=== PATIENT | female | born 1975 | race Caucasian/White ===

== ENCOUNTER 2020-02-14 15:05 | Emergency (ER) | payer MEDICARE, MEDICAID, SELFPAY ==
[2020-02-14 15:16] VITALS: BP 145/77; PULSE 71; RESP 18; TEMP 36.7; O2SAT 100
[2020-02-14 16:40] VITALS: PULSE 68; RESP 20; O2SAT 98
[2020-02-14 16:42] LABS: Basophils # 0.1 10^3/uL (0.0-0.1); Basophils % 1.9 %; Eosinophils # 0.7 10^3/uL (0.0-0.8); Hematocrit 40.6 % (37.0-47.0); Hemoglobin 12.2 g/dL (11.5-15.3); Lymphocytes # 1.9 10^3/uL (0.8-4.8); Lymphocytes % 26.1 %; Mean Corpuscular Hemoglobin 25.6 pg (28.0-34.0); Mean Corpuscular Volume 85.3 fL (81-99); Mean Platelet Volume 8.8 fL (7.4-10.4); Monocytes # 0.6 10^3/uL (0.2-0.9); Monocytes % 7.8 %; Neutrophils # 3.94 10^3/uL (1.8-7.7); Neutrophils % 53.9 %; Nucleated Red Blood Cells % 0 %; Platelet Count 292 10^3/cmm (130-400); Red Blood Count 4.76 10^6/uL (4.1-5.3); Red Cell Distribution Width 14.4 % (12.1-15.1); White Blood Count 7.3 10^3/uL (4.0-10.0)
[2020-02-14 16:53] LABS: HCG, Serum Qual Negative (Negative)
--- NOTE | 2020-02-14 17:03 | PC.NURSE ---
Before leaving room previously pt had stated she wanted to go home and this nurse advised her that she should stay and get the scan the physician had ordered. Pt stated she wanted to go outside and smoke and this nurse notified her that if she went out to smoke she could not return to her room. Upon entering pt room at this time the room is empty. This nurse went to registration and they stated the patient had walked outside and left.
--- NOTE | 2020-02-14 17:18 | W.ED.ABDPA2 ---
HPI - Abdominal Pain General: Chief Complaint: Abdominal Pain Stated Complaint: abd pain Time Seen by Provider: 02/14/20 16:28 History of Present Illness: HPI narrative: 44-year-old female comes in complaining of right upper quadrant and epigastric abdominal pain is been going on for last day. She is previously had a cholecystectomy she is concerned she may have an appendicitis patient had previously had an endoscopy which showed a gastric ulcer. She not been taking anything for recently. MD elicited complaint: abdominal pain Pertinent past history: gastritis Onset (ago): hour(s) Pain Consistency: intermittent Location: Epigastric Severity: moderate Quality: cramping Radiation: RUQ and epigastric Migration to: no migration Exacerbating factors: nothing Relieving factors: nothing Associated Symptoms: Reports constipation, GI cramping, dyspepsia and vomiting; Denies bloating, change in bowel habits, coffee ground emesis, diarrhea, fever(s), hematuria, hematemesis and melena Treatments prior to arrival: NSAIDs Review of Systems Const: Denies: fever(s) ENMT: Denies: throat pain, ear or mastoid pain, nasal discharge or nasal congestion Card: Denies: chest pain, edema, dyspnea on exertion or orthopnea Resp: Denies: dyspnea, productive cough or non-productive cough GI: Reports: vomiting, constipation and GI cramping; Denies: hematemesis, coffee ground emesis, diarrhea, bloating, change in bowel habits or melena : Denies: hematuria Skin/Breast: Denies: rash or pruritus PFSH ED PFSH: Medical History (Updated 02/15/20 @ 13:52 by Alfredo Iglesias DO) Cervical spine fracture Chronic low back pain Vaginal delivery Surgical History (Updated 02/15/20 @ 13:52 by Alfredo Iglesias DO) H/O LEEP H/O tubal ligation Hx of cholecystectomy S/P small bowel resection Social History (Updated 02/15/20 @ 13:52 by Alfredo Iglesias DO) Smoking and tobacco status: current every day smoker Alcohol intake: never Physical Exam Const: COMMON NORMALS: no acute distress GENERAL APPEARANCE: cooperative and comfortable ORIENTATION/CONSCIOUSNESS: Yes awake, Yes oriented to person, Yes oriented to place and Yes oriented to time Eye: COMMON NORMALS: Equal, round and reactive pupils present, EOMs intact bilaterally, conjunctivae normal and no scleral icterus CONJUNCTIVA: Yes conjunctivae normal PUPIL: Yes Equal, round and reactive pupils present Neck/C-Spine: COMMON NORMALS: full ROM, no lymphadenopathy, supple and no JVD Lymph: LYMPHATIC: no lymphadenopathy noted and no lymphedema noted Resp: COMMON NORMALS: normal respiratory effort, No retractions, No use of accessory muscles and clear to auscultation bilaterally AUSCULTATION: clear to auscultation bilaterally Cardio: COMMON NORMALS: no JVD, regular rate, regular rhythm and No murmurs present (Cardio) RATE: regular rate RHYTHM: regular rhythm GI: COMMON NORMALS: Soft to palpation and No hepatosplenomegaly present AUSCULTATION: Yes normoactive bowel sounds PALPATION: Yes Soft to palpation, No Tenderness to palpation present (GI), No Guarding due to palpation present (GI) and Yes No hepatosplenomegaly present Extremity: COMMON NORMALS: normal to inspection, capillary refill normal, no clubbing, cyanosis or edema, no calf tenderness and no pedal edema Neuro: SENSORIUM/ORIENTATION: Yes oriented to person, Yes oriented to place and Yes oriented to time Skin: COMMON NORMALS: no rashes or lesions noted GENERAL SKIN EXAM: no rashes or lesions noted Course Vital Signs: Vital signs: Vital Signs Temperature 98.0 F 02/14/20 15:16 Pulse Rate 68 02/14/20 16:40 Respiratory Rate 20 H 02/14/20 16:40 Blood Pressure 145/77 02/14/20 15:16 Pulse Oximetry 98 02/14/20 16:40 MDM - Abdominal Pain MDM Narrative: Medical decision making narrative: After initial evaluation recommended CT abdomen pelvis with IV contrast however patient did not want to stay. She was concerned she had an appendicitis the location of the pain is unlikely to be appendicitis and [facility] she was satisfied with that and wanted to leave. Recommended to her that she stay that she should have the persistent CT done to make sure there is no other issues going on she declined and left AMA. Lab Data: Labs: Lab Results 02/14/20 02/14/20 02/14/20 Range/Units 16:34 16:34 16:34 WBC 7.3 (4.0-10.0) 10^3/ uL RBC 4.76 (4.1-5.3) 10^6/u L Hgb 12.2 (11.5-15.3) g/dL Hct 40.6 (37.0-47.0) % MCV 85.3 (81-99) fL MCH 25.6 L (28.0-34.0) pg MCHC 30.0 (30.0-36.0) g/dL RDW 14.4 (12.1-15.1) % Plt Count 292 (130-400) 10^3/c mm MPV 8.8 (7.4-10.4) fL Neut % (Auto) 53.9 % Lymph % (Auto) 26.1 % [place] % (Auto) 7.8 % Eos % (Auto) 10.0 % Baso % (Auto) 1.9 % Neut # (Auto) 3.94 (1.8-7.7) 10^3/u L Lymph # (Auto) 1.9 (0.8-4.8) 10^3/u L [place] # (Auto) 0.6 (0.2-0.9) 10^3/u L Eos # (Auto) 0.7 (0.0-0.8) 10^3/u L Baso # (Auto) 0.1 (0.0-0.1) 10^3/u L Nucleated RBC % (a uto) 0 % Nucleated RBCs # 0.0 /100WBC Sodium 136 (136-145) mmol/L Potassium 3.7 (3.5-5.1) mmol/L Chloride 101 (98-107) mmol/L Carbon Dioxide 24 (22-29) mmol/L Anion Gap 14.7 (5-19) BUN 10 (6-20) mg/dL Creatinine 0.8 (0.5-0.9) mg/dL GFR Calculation 78.7 L (90-130) mL/min Glucose 84 (65-115) mg/dL Calculated Osmolal ity 277 L (285-295) mOsm/k g Lactate 1.0 (0.5-2.2) mmol/L Calcium 9.6 (8.5-10.5) mg/dL Magnesium 1.9 (1.7-2.3) mg/dL Total Bilirubin 0.4 (0.15-1.2) mg/dL AST 18 (0-32) U/L ALT 16 (0-33) U/L Alkaline Phosphata se 65 (35-105) IU/L Total Protein 7.4 (6.6-8.7) g/dL Albumin 4.0 (3.5-5.2) g/dL Globulin 3.4 (1.3-4.6) g/dL Lipase 25 (13-60) U/L HCG, Qual (Negative) 02/14/20 Range/Units 16:34 WBC (4.0-10.0) 10^3/ uL RBC (4.1-5.3) 10^6/u L Hgb (11.5-15.3) g/dL Hct (37.0-47.0) % MCV (81-99) fL MCH (28.0-34.0) pg MCHC (30.0-36.0) g/dL RDW (12.1-15.1) % Plt Count (130-400) 10^3/c mm MPV (7.4-10.4) fL Neut % (Auto) % Lymph % (Auto) % [place] % (Auto) % Eos % (Auto) % Baso % (Auto) % Neut # (Auto) (1.8-7.7) 10^3/u L Lymph # (Auto) (0.8-4.8) 10^3/u L [place] # (Auto) (0.2-0.9) 10^3/u L Eos # (Auto) (0.0-0.8) 10^3/u L Baso # (Auto) (0.0-0.1) 10^3/u L Nucleated RBC % (a uto) % Nucleated RBCs # /100WBC Sodium (136-145) mmol/L Potassium (3.5-5.1) mmol/L Chloride (98-107) mmol/L Carbon Dioxide (22-29) mmol/L Anion Gap (5-19) BUN (6-20) mg/dL Creatinine (0.5-0.9) mg/dL GFR Calculation (90-130) mL/min Glucose (65-115) mg/dL Calculated Osmolal ity (285-295) mOsm/k g Lactate (0.5-2.2) mmol/L Calcium (8.5-10.5) mg/dL Magnesium (1.7-2.3) mg/dL Total Bilirubin (0.15-1.2) mg/dL AST (0-32) U/L ALT (0-33) U/L Alkaline Phosphata se (35-105) IU/L Total Protein (6.6-8.7) g/dL Albumin (3.5-5.2) g/dL Globulin (1.3-4.6) g/dL Lipase (13-60) U/L HCG, Qual Negative (Negative) Discharge Plan Discharge Patient Disposition: Left Against Medical Advice Prescriptions: No Action albuterol sulfate 90 mcg/actuation Hfa Aerosol Inhaler 1 - 2 puff INHALATION Q6H PRN (Reason: Shortness Of Breath) RF: 0 Referrals: Garett Horton MD [Primary Care Provider] - Discharge Date/Time: 02/14/20 17:05 Coding Level of Care Code ED [employer] Parts Cutter Hand for Phoebe Wilson
[2020-02-14 17:43] LABS: Alanine Aminotransferase 16 U/L (0-33); Alkaline Phosphatase 65 IU/L (35-105); Anion Gap 14.7 (5-19); Aspartate Amino Transferase 18 U/L (0-32); Blood Urea Nitrogen 10 mg/dL (6-20); Calcium 9.6 mg/dL (8.5-10.5); Carbon Dioxide 24 mmol/L (22-29); Chloride 101 mmol/L (98-107); Globulin 3.4 g/dL (1.3-4.6); Glomerular Filtration Rate 78.7 mL/min (90-130); Glucose 84 mg/dL (65-115); Lipase 25 U/L (13-60); Magnesium 1.9 mg/dL (1.7-2.3); Osmolality Calculated 277 mOsm/kg (285-295); Potassium 3.7 mmol/L (3.5-5.1); Sodium 136 mmol/L (136-145); Total Bilirubin 0.4 mg/dL (0.15-1.2); Total Protein 7.4 g/dL (6.6-8.7)
== END 2020-02-14 17:05 | disposition left against medical advice (07) ==
PROVIDERS: Emergency Medicine; Emergency Provider Family Medicine; PCP Family Medicine
DX: R10.9 Unspecified abdominal pain (principal); Z53.21 Procedure and treatment not carried out due to patient leaving prior to being seen by health care provider; F17.210 Nicotine dependence, cigarettes, uncomplicated
CPT/HCPCS: 12345; 36415; 80053; 83605; 83690; 83735; 84703; 85025; 99281; 99283

== ENCOUNTER → 2021-07-16 19:03 | Outpatient (BNVA) | payer MEDICARE, MEDICAID, SELFPAY | PROVIDERS: Visit Provider Registered Nurse Neonatal Intensive Care | DX: Z20.2 Contact with and (suspected) exposure to infections with a predominantly sexual mode of transmission (principal) | CPT/HCPCS: 81000; 87491; 87591; 87661 ==

== ENCOUNTER 2021-10-29 05:36 | Day surgery (SDC) | payer MEDICARE, MEDICAID, SELFPAY ==
[2021-10-25 12:35] VITALS: BMI 27.1
[2021-10-29 06:12] VITALS: BP 165/98; PULSE 80; RESP 18; TEMP 36.1; O2SAT 99
[2021-10-29] MEDS: sodium chloride 0.9% 1,000 ML 30 ML IV (06:30)
[2021-10-29 06:33] LABS: OR HCG Qualitative Urine Negative (Negative)
--- NOTE | 2021-10-29 06:41 | ANES.PREANE2 ---
Pre-Anesthetic Assessment Height/Weight: Height 1.65 m Weight 73.936 kg Temp Pulse Resp BP Pulse Ox 97 F L 80 18 165/98 99 10/29/21 06:12 10/29/21 06:12 10/29/21 06:12 10/29/21 06:12 10/29/21 06:12 Preop Diagnosis: screen Operation Date: 10/29/21 07:00 Proposed Procedures p Colonoscopy g0102(Not Applicable) - Rolo Us MD Familial anesthetic complications: none Was Beta Faraz taken within 24 hours: N/A Was Clonidine taken within 24 hours: N/A Last intake: Intake Last Liquid Date 10/28/21 Last Liquid Time 22:30 Last Solid Date 10/27/21 Last Solid Time 18:00 Social Tobacco 0.5 pack(s) per day MJ daily Exam alert and oriented x 3 Airway Submandibular: within normal limits Cervical ROM: within normal limits Mallampati: Class II Dentition: other Comments: Comments: poor dentition, many missing Pulmonary Asthma CV/HEM Murmur None reported Hepatic None reported GI None reported Metabolic None reported Neuropsych Anxiety and Seizure (epilepsy- patient doesnt recall last seizure, states maybe 10 months ago ) Anesthetic Plan ASA status: 3 Anesthesia: Anesthesia Evaluation and MAC Medications/Allergies Home Medications Medication Instructions Recorded Confirmed Last Taken Type albuterol sulfate 90 mcg/actuation 1 inh INHALATION QID PRN #8.5 g 09/25/21 10/29/21 10/28/21 Rx aerosol inhaler Allergies Allergy/AdvReac Type Severity Reaction Status Date / Time latex Allergy ALGY-Rash Verified 10/25/21 12:34 Penicillins Allergy ADR-Abdominal Verified 10/25/21 12:34 Pain Current Medications Generic Name Dose Route Start Last Admin Trade Name Freq PRN Reason Stop Dose Admin Sodium Chloride 1,000 mls @ 30 mls/hr 10/29/21 06:00 10/29/21 06:30 Sodium Chloride 0.9% IV 10/30/21 05:59 30 mls/hr .Q24H NICKOLAS Administration PFSH Anesthesia Medical History Cervical spine fracture Chronic low back pain Marijuana abuse Vaginal delivery Surgical History H/O LEEP H/O tubal ligation Hx of cholecystectomy S/P small bowel resection Social History Smoking and tobacco status: current every day smoker Alcohol intake: never Female Reproductive History Date of last menstrual period: 10/12/21 Data Anesthesia Cardiac Studies: No Data to Display
--- NOTE | 2021-10-29 07:15 | P.HP_ITS ---
Same Day Surgery H&P Indication for Procedure/HPI DATE OF PROCEDURE: October 29, 2021 CHIEF COMPLAINT/INDICATIONFOR SURGICAL PROCEDURE: Family history of colon cancer PREOP DIAGNOSIS: screen PLANNED PROCEDURE: Operation Date: 10/29/21 07:00 Proposed Procedures p Colonoscopy g0102(Not Applicable) - Rolo Us MD Medications/Allergies* Allergies/Adverse Reactions Allergy/AdvReac Type Severity Reaction Status Date / Time latex Allergy ALGY-Rash Verified 10/25/21 12:34 Penicillins Allergy ADR-Abdominal Verified 10/25/21 12:34 Pain Current Medications: Generic Name Dose Route Start Last Admin Trade Name Freq PRN Reason Stop Dose Admin Sodium Chloride 1,000 mls @ 30 mls/hr 10/29/21 06:00 10/29/21 06:30 Sodium Chloride 0.9% IV 10/30/21 05:59 30 mls/hr .Q24H NICKOLAS Administration Pertinent History/Comorbid Conditions* Medical History (Updated 10/11/21 @ 13:43 by Rolo Us MD) Cervical spine fracture Chronic low back pain Marijuana abuse Vaginal delivery Surgical History (Updated 02/15/20 @ 13:52 by Alfredo Iglesias DO) H/O LEEP H/O tubal ligation Hx of cholecystectomy S/P small bowel resection Social History Smoking and tobacco status: current every day smoker Alcohol intake: never Pertinent Exam Findings alert, oriented x 3, clear to auscultation bilaterally, regular rate & rhythm, operative site marked and procedure specific exam findings Recommendations Surgery/Procedure today Coding Level of Care Code Acute Public Message Service Supervisor for Phoebe Wilson
[2021-10-29 07:27] VITALS: BP 160/92; PULSE 73; RESP 18; TEMP 36.5; O2SAT 100
--- NOTE | 2021-10-29 07:29 | ANE.PACU2 ---
Inpatient post-anesthesia follow up: Airway intact: Yes Vital signs: Temperature 97.7 F Pulse Rate 73 Respiratory Rate 18 Blood Pressure 160/92 Pulse Oximetry 100 Oxygen Delivery Me thod Room Air Oxygen Flow Rate Fraction of Inspir ed Oxygen Hydration adequate: Yes Nausea and vomiting: No Pain level: 1 Mental status: Baseline
[2021-10-29 07:30] VITALS: BP 159/92; PULSE 86; RESP 18; O2SAT 99
== END 2021-10-29 07:45 | disposition home or self-care (01) ==
PROVIDERS: Anesthesiology; PCP Family Medicine; Visit Provider Internal Medicine
PROC: 0DJD8ZZ Inspection of Lower Intestinal Tract, Via Natural or Artificial Opening Endoscopic (ICD-10-PCS; CPT 45378; principal; 2021-10-29 07:00)
DX: Z12.11 Encounter for screening for malignant neoplasm of colon (principal); Z86.010 Personal history of colon polyps; F17.210 Nicotine dependence, cigarettes, uncomplicated; J45.909 Unspecified asthma, uncomplicated; G40.909 Epilepsy, unspecified, not intractable, without status epilepticus
CPT/HCPCS: 84703; G0121; J2704; J7030

== ENCOUNTER → 2023-03-13 12:47 | Outpatient (BNVA) | payer MEDICARE, MEDICAID, SELFPAY | PROVIDERS: PCP Family Medicine; Visit Provider Family Medicine | DX: E05.90 Thyrotoxicosis, unspecified without thyrotoxic crisis or storm (principal); L65.9 Nonscarring hair loss, unspecified; N93.8 Other specified abnormal uterine and vaginal bleeding; F15.10 Other stimulant abuse, uncomplicated | CPT/HCPCS: 80053; 84443; 85025 ==

== ENCOUNTER 2023-03-26 20:19 | Emergency (ER) | payer MEDICARE, MEDICAID, SELFPAY ==
[2023-03-26 20:26] VITALS: BP 186/149; RESP 22; TEMP 36.6; O2SAT 100; BMI 27.4
--- NOTE | 2023-03-26 20:28 | XRR_ITS ---
PROCEDURE INFORMATION: Exam: XR Soft Tissue Neck Exam date and time: 03/26/2023 8:33 PM Age: 47 years old Clinical indication: Other: Choking TECHNIQUE: Imaging protocol: Radiologic exam of the soft tissues of the neck. COMPARISON: CR XR chest 1V [id number] 03/03/2018 8:30 AM FINDINGS: Airway: Normal. No abnormal narrowing. Soft tissues: Normal. Normal epiglottis. Bones/joints: Unremarkable. XR/XR soft tissue neck [id number] IMPRESSION: No acute findings. Negative for radiodense foreign body.
--- NOTE | 2023-03-26 20:28 | XRR_ITS ---
PROCEDURE INFORMATION: Exam: XR Chest Exam date and time: 03/26/2023 8:43 PM Age: 47 years old Clinical indication: Other: Choking TECHNIQUE: Imaging protocol: Radiologic exam of the chest. Views: 1 view. COMPARISON: CR XR chest 1V [id number] 03/03/2018 8:30 AM FINDINGS: Lungs: Unremarkable. No consolidation. Pleural spaces: Unremarkable. No pleural effusion. No pneumothorax. Heart/Mediastinum: Cardiomegaly. Bones/joints: Unremarkable. XR/XR chest 1V portable [id number] IMPRESSION: Cardiomegaly, negative for infiltrate
[2023-03-26] MEDS: LORazepam 2 mg/mL INJ 1 mL IM (20:39)
--- NOTE | 2023-03-26 21:03 | ED_ITS ---
HPI - General Adult General: Chief complaint: General Medical Stated complaint: swollowed something, hard time breathing Time Seen by Provider: 03/26/23 20:22 Source: patient Mode of arrival: ambulatory Limitations: no limitations History of Present Illness: 47-year-old female who does admit to drug use today states she had taken a gummy states she is walking the [place] and felt like something flew in her throat and feels like now there is something struck in her throat. Patient is quite anxious screaming she is in no acute distress though oxygen is normal. No vomiting or diarrhea no chest pain Associated symptoms: Deny chest pain, dyspnea, headache(s), nausea, rash or vomiting Review of Systems Const: Denies: fever(s) or chills ENMT: Reports: throat pain; Denies: dental pain Card: Denies: chest pain Resp: Denies: dyspnea GI: Denies: abdominal pain, nausea, vomiting or diarrhea Musc: Denies: neck pain or back pain Skin/Breast: Denies: rash Neuro: Denies: headache(s) PFSH ED PFSH: Medical History Cervical spine fracture Chronic low back pain Marijuana abuse Vaginal delivery Surgical History H/O LEEP H/O tubal ligation Hx of cholecystectomy S/P small bowel resection Social History Smoking and tobacco status: current every day smoker Alcohol intake: never Substance/Drug Use: current Physical Exam Const: COMMON NORMALS: patient oriented x3 GENERAL APPEARANCE: anxious and disheveled HENMT: COMMON NORMALS: normocephalic and atraumatic HEAD & SCALP: normocephalic and atraumatic THROAT: posterior oropharynx normal Eye: COMMON NORMALS: conjunctivae normal CONJUNCTIVA: Yes conjunctivae normal Chest: COMMONS NORMALS: normal inspection of the chest Resp: COMMON NORMALS: normal respiratory effort Extremity: COMMON NORMALS: normal to inspection Neuro: COMMON NORMALS: patient oriented x3 Psych: MOOD & AFFECT: Yes anxious Skin: COMMON NORMALS: no rashes or lesions noted GENERAL SKIN EXAM: no rashes or lesions noted Course Vital Signs: Vital signs: Vital Signs Temperature 97.9 F 03/26/23 20:26 Pulse Rate 75 03/26/23 21:34 Respiratory Rate 22 H 03/26/23 20:26 Blood Pressure 186/108 03/26/23 21:22 Pulse Oximetry 95 03/26/23 21:34 Oxygen Delivery Me thod Room Air 03/26/23 20:26 MDM - General Adult Medical Decision Making Patient presents here with a globus sensation in her throat since resolved after Ativan here. She is able to tolerate liquids and solids she is stable for discharge. Lab Data Radiology Impressions Chest X-Ray 03/26/23 20:28 IMPRESSION: Cardiomegaly, negative for infiltrate Soft Tissue Neck X-Ray 03/26/23 20:28 IMPRESSION: No acute findings. Negative for radiodense foreign body. Discharge Plan Discharge Patient Disposition: Home Clinical Impression: Globus sensation Condition: Stable Prescriptions: No Action albuterol sulfate 90 mcg/actuation HFA aerosol inhaler 1 inh inhalation QID PRN (Reason: shortness of breath or wheezing) Qty: 8.5 2RF Discharge Orders: Discharge ED (Routine); Ordered 03/26/23 Ordered By: Mert Lopez Referrals: Betsy Aguirre MD [Primary Care Provider] - Discharge Diet: Advance as tolerated Discharge Activity: Resume usual activity Patient Instructions: Dysphagia (ED) Coding Level of Care Code ED Director Ship for Phoebe Wilson
[2023-03-26 21:22] VITALS: BP 186/108
[2023-03-26 21:34] VITALS: PULSE 75; O2SAT 95
== END 2023-03-26 21:35 | disposition home or self-care (01) ==
PROVIDERS: Emergency Provider Emergency Medicine; PCP Family Medicine
DX: F45.8 Other somatoform disorders (principal); F17.210 Nicotine dependence, cigarettes, uncomplicated
CPT/HCPCS: 70360; 71045; 96372; 99284; J1610; J2060

== ENCOUNTER → 2023-04-09 14:10 | Outpatient (BNVA) | payer MEDICARE, MEDICAID, SELFPAY | PROVIDERS: PCP Family Medicine; Visit Provider Dermatology | DX: L65.9 Nonscarring hair loss, unspecified (principal); L29.8 Other pruritus | CPT/HCPCS: 11104; 99204 ==

== ENCOUNTER → 2023-05-01 15:29 | Outpatient (BNVA) | payer MEDICARE, MEDICAID, SELFPAY | PROVIDERS: PCP Family Medicine; Visit Provider Dermatology | DX: F63.3 Trichotillomania (principal); L21.8 Other seborrheic dermatitis | CPT/HCPCS: 99213 ==

== ENCOUNTER 2023-09-20 11:36 | Emergency (ER) | payer MEDICARE, MEDICAID, SELFPAY ==
[2023-09-20 11:38] VITALS: BP 171/92; PULSE 65; RESP 19; TEMP 36.7; O2SAT 96; BMI 27.1
--- NOTE | 2023-09-20 11:40 | ECG_ITS ---
[facility] Test Date: 2023-09-20 Pat Name: Tiffany Burt Department: Room: Gender: Female Nuclear Operator: : 1975 Requested By: Keagan Ahn Order Number: [id number] Lopez MD: Jun Foy M.D. Measurements Intervals Wilson Rate: 74 P: 82 HI: 133 QRS: 99 QRSD: 94 T: 85 QT: 390 QTc: 435 Interpretive Statements SINUS RHYTHM WITH SINUS ARRHYTHMIA POSSIBLE LEFT ATRIAL ENLARGEMENT [-0.1mV P-WAVE IN V1/V2] BORDERLINE RIGHT AXIS DEVIATION [QRS AXIS > 90] No previous ECG available for comparison Electronically Signed On 09-22-2023 9:32:25 PARTY PLAN SELLING DISTRIBUTOR by Jun Foy M.D. [id number]
--- NOTE | 2023-09-20 12:03 | XRR_ITS ---
PROCEDURE INFORMATION: Exam: XR Chest Exam date and time: 09/20/2023 12:09 PM Age: 48 years old Clinical indication: Shortness of breath; Additional info: SOB with recent ilness, R/O pneumonia TECHNIQUE: Imaging protocol: Radiologic exam of the chest. Views: 2 views. COMPARISON: CR XR chest 1V portable [id number] 03/26/2023 8:43 PM FINDINGS: Lungs: No focal consolidation. Pleural spaces: No pleural effusion. No pneumothorax. Heart/Mediastinum: No cardiomegaly. Bones/joints: No acute findings. XR/XR chest 2V* [id number] IMPRESSION: No focal consolidation.
--- NOTE | 2023-09-20 12:03 | ED_ITS ---
HPI - SOB/Dyspnea 2 General: Chief Complaint: Shortness of Breath/Dyspnea Stated Complaint: sob Time Seen by Provider: 09/20/23 11:56 History of Present Illness: HPI Narrative: The patient presents with a chief complaint of being sick for three weeks, with worsening symptoms since Friday. They report experiencing shortness of breath, coughing, wheezing, and fever. The patient is unsure of the exact temperature of their fever but describes experiencing cold chills followed by sudden heat. They also report feeling nauseous. The patient has a history of asthma and high blood pressure. They mention that they were prescribed prednisone and azithromycin by Dr. Aguirre, who also recommended a chest X-ray. The patient did not undergo the chest X-ray as they thought they might be improving. They also report that they started their menstrual period last night. During the physical examination, the patient experienced pain in the right upper quadrant of their abdomen when palpated. Review of Systems 2 General: Reports: 10 or more systems reviewed and unremarkable except in HPI and below PFSH ED 2 PFSH: Medical History (Updated 09/20/23 @ 14:43 by Keagan Ahn DO) Marijuana abuse Chronic low back pain Vaginal delivery Cervical spine fracture Surgical History H/O tubal ligation H/O LEEP S/P small bowel resection Hx of cholecystectomy Social History Smoking and tobacco/nicotine status: current every day tobacco/nicotine user Alcohol intake: never Substance/Drug Use: current Physical Exam 2 Const: COMMON NORMALS: no acute distress and patient oriented x3 EXAM LIMITATIONS: no altered mental status HENMT: COMMON NORMALS: normocephalic HEAD & SCALP: normocephalic MOUTH: moist mucous membranes not abnormal Eye: EOM: No EOM abnormal Neck/C-Spine: COMMON NORMALS: full ROM and supple Chest: COMMONS NORMALS: normal inspection of the chest CHEST: Yes Symmetrical chest wall rise Resp: COMMON NORMALS: normal respiratory effort, No retractions, No use of accessory muscles and clear to auscultation bilaterally AUSCULTATION: clear to auscultation bilaterally, no crackles, no rales, no rhonchi and no wheezes Cardio: COMMON NORMALS: regular rate and No murmurs present (Cardio) RATE: regular rate GI: COMMON NORMALS: Soft to palpation and non-tender PALPATION: Yes Soft to palpation Extremity: COMMON NORMALS: normal to inspection and full ROM Neuro: COMMON NORMALS: patient oriented x3 Skin: COMMON NORMALS: no rashes or lesions noted GENERAL SKIN EXAM: no rashes or lesions noted Course 2 Vital Signs: Vital signs: Vital Signs Temperature 98.0 F 09/20/23 14:57 Pulse Rate 82 09/20/23 14:57 Respiratory Rate 18 09/20/23 14:57 Blood Pressure 172/117 09/20/23 14:57 Pulse Oximetry 98 09/20/23 14:57 Oxygen Delivery Me thod Room Air 09/20/23 12:11 MDM - SOB/Dyspnea Medical Decision Making 48-year-old female present to the emergency department for evaluation of shortness of breath. Patient's symptoms are likely secondary to viral illness exacerbated by anxiety attack. Patient responded well to angiolytic in the emergency department. Return precautions were discussed with the patient and her sister. Patient was discharged home in improved condition. Lab Data 09/20/23 12:46 09/20/23 12:46 Labs/Radiology: Radiology Impressions Chest X-Ray 09/20/23 12:03 IMPRESSION: No focal consolidation. Laboratory Results WBC 14.41 10^3/uL (3.29-11.43) H 09/20/23 12:46 RBC 5.31 10^6/uL (3.85-5.65) 09/20/23 12:46 Hgb 14.40 g/dL (11.27-16.99) 09/20/23 12:46 Hct 42.9 % (36-47) 09/20/23 12:46 MCV 80.8 fl (85-98) L 09/20/23 12:46 MCH 27.1 pg (27-33) 09/20/23 12:46 MCHC 33.6 g/dL (30-55) 09/20/23 12:46 RDW 12.4 % (12.1-15.1) 09/20/23 12:46 Plt Count 298 10^3/cmm (157-399) 09/20/23 12:46 MPV 9.3 fL (7.4-10.4) 09/20/23 12:46 Neut % (Auto) 86.2 % 09/20/23 12:46 Lymph % (Auto) 7.3 % 09/20/23 12:46 [place] % (Auto) 5.7 % 09/20/23 12:46 Eos % (Auto) 0.1 % 09/20/23 12:46 Baso % (Auto) 0.1 % 09/20/23 12:46 Neut # (Auto) 12.43 10^3/uL (1.8-7.7) H 09/20/23 12:46 Lymph # (Auto) 1.1 10^3/uL (0.8-4.8) 09/20/23 12:46 [place] # (Auto) 0.8 10^3/uL (0.2-0.9) 09/20/23 12:46 Eos # (Auto) 0.0 10^3/uL (0.0-0.8) 09/20/23 12:46 Baso # (Auto) 0.0 10^3/uL (0.0-0.1) 09/20/23 12:46 Nucleated RBC % (auto) 0 % 09/20/23 12:46 Nucleated RBCs # 0.0 /100WBC 09/20/23 12:46 Sodium 135 mmol/L (136-145) L 09/20/23 12:46 Potassium 4.1 mmol/L (3.5-5.1) 09/20/23 12:46 Chloride 100 mmol/L (98-107) 09/20/23 12:46 Carbon Dioxide 23 mmol/L (22-29) 09/20/23 12:46 Anion Gap 16.1 (5-19) 09/20/23 12:46 BUN 17 mg/dL (6-20) 09/20/23 12:46 Creatinine 0.7 mg/dL (0.5-0.9) 09/20/23 12:46 GFR Calculation 90.1 mL/min (90-130) 09/20/23 12:46 Glucose 170 mg/dL (65-115) H 09/20/23 12:46 Calculated Osmolality 286 mOsm/kg (285-295) 09/20/23 12:46 Calcium 9.5 mg/dL (8.5-10.5) 09/20/23 12:46 Influenza Type A Ag negative (Negative) 09/20/23 12:48 Influenza Type B Ag negative (Negative) 09/20/23 12:48 SARS-CoV-2 Ag (Rapid) negative (Negative) 09/20/23 12:48 All radiology interpretation(s) finalized by discharge Discharge Plan Discharge Patient Disposition: Home Clinical Impression: Viral illness, Anxiety attack Condition: Stable Prescriptions: No Action mupirocin 2 % ointment 1 applic topical TID 10 Days Qty: 15 0RF azithromycin 250 mg tablet 500 mg PO DAILY 3 Days Qty: 6 0RF benzonatate 200 mg capsule 200 mg PO BID PRN (Reason: cough) Qty: 14 0RF aspirin 81 mg tablet,delayed release (DR/EC) 81 mg PO DAILY albuterol sulfate 90 mcg/actuation HFA aerosol inhaler 1 inh inhalation QID PRN (Reason: shortness of breath or wheezing) Qty: 8.5 5RF lisinopril 10 mg tablet See Rx Instructions .ROUTE .COMPLEX Qty: 90 0RF Dose Instruction: TAKE 1 TABLET BY MOUTH ONCE DAILY - MAY INCREASE TO 2 TABLETS ONCE DAILY IF NO BENEFIT AFTER 14 DAYS Rx Instructions: TAKE 1 TABLET BY MOUTH ONCE DAILY - MAY INCREASE TO 2 TABLETS ONCE DAILY IF NO BENEFIT AFTER 14 DAYS prednisone 20 mg tablet 20 mg PO .COMPLEX Qty: 14 0RF Rx Instructions: 3 tabs day 1 and 2, decrease by one half tablet daily until gone. Discharge Orders: Discharge ED (Routine); Ordered 09/20/23 Ordered By: Keagan Ahn Referrals: Betsy Aguirre MD [Primary Care Provider] - Discharge Diet: Regular Discharge Activity: Resume usual activity Patient Instructions: Opioid Safety, Pain Management Coding Level of Care Code ED [employer] Operator for Phoebe Wilson
[2023-09-20 12:11] VITALS: BP 172/117; PULSE 82; RESP 18; O2SAT 98
[2023-09-20 13:02] LABS: Basophils % 0.1 %; Eosinophils % 0.1 %; Hematocrit 42.9 % (36-47); Lymphocytes # 1.1 10^3/uL (0.8-4.8); Lymphocytes % 7.3 %; Mean Corpuscular HGB Conc 33.6 g/dL (30-55); Mean Corpuscular Hemoglobin 27.1 pg (27-33); Mean Corpuscular Volume 80.8 fl (85-98); Mean Platelet Volume 9.3 fL (7.4-10.4); Monocytes # 0.8 10^3/uL (0.2-0.9); Monocytes % 5.7 %; Neutrophils # 12.43 10^3/uL (1.8-7.7); Neutrophils % 86.2 %; Nucleated Red Blood Cells % 0 %; Platelet Count 298 10^3/cmm (157-399); Red Blood Count 5.31 10^6/uL (3.85-5.65); Red Cell Distribution Width 12.4 % (12.1-15.1); White Blood Count 14.41 10^3/uL (3.29-11.43)
[2023-09-20] MEDS: sodium chloride 0.9% 500 ML 999 ML IV (13:04)
[2023-09-20 13:12] LABS: Influenza A by IFA negative (Negative); Influenza B by IFA negative (Negative); SARS Covid-2 Antigen negative (Negative)
[2023-09-20 13:19] LABS: Anion Gap 16.1 (5-19); Blood Urea Nitrogen 17 mg/dL (6-20); Calcium 9.5 mg/dL (8.5-10.5); Carbon Dioxide 23 mmol/L (22-29); Chloride 100 mmol/L (98-107); Creatinine Clr Calc Pharmacy 104.7286; Glomerular Filtration Rate 90.1 mL/min (90-130); Glucose 170 mg/dL (65-115); Osmolality Calculated 286 mOsm/kg (285-295); Potassium 4.1 mmol/L (3.5-5.1); Sodium 135 mmol/L (136-145)
[2023-09-20] MEDS: LORazepam 2 mg/mL INJ 10 mL MDV 1 MG IV (14:16)
[2023-09-20 14:57] VITALS: BP 172/117; PULSE 82; RESP 18; TEMP 36.7; O2SAT 98
== END 2023-09-20 14:58 | disposition home or self-care (01) ==
PROVIDERS: Emergency Provider General Practice; PCP Family Medicine
DX: B34.9 Viral infection, unspecified (principal); Z11.52 Encounter for screening for COVID-19; Z79.82 Long term (current) use of aspirin; Z72.0 Tobacco use
CPT/HCPCS: 71046; 80048; 85025; 87426; 87804; 93005; 96361; 96374; 99285; J2060; J7040

== ENCOUNTER 2024-06-24 10:44 | Observation (INO) | payer MEDICARE, MEDICAID, SELFPAY ==
[2024-06-24] VITALS (10 sets, daily range): BP systolic 158–200; BP diastolic 79–98; PULSE 50–62; RESP 16; TEMP 36.3–36.6; O2SAT 97–100; BMI 28.0
[2024-06-24 12:13] LABS: Basophils # 0.1 10^3/uL (0.0-0.1); Basophils % 0.7 %; Eosinophils # 0.4 10^3/uL (0.0-0.8); Eosinophils % 3.6 %; Hematocrit 41.9 % (36-47); Lymphocytes # 1.8 10^3/uL (0.8-4.8); Lymphocytes % 16.3 %; Mean Corpuscular Hemoglobin 26.8 pg (27-33); Mean Corpuscular Volume 83.8 fl (85-98); Mean Platelet Volume 9.2 fL (7.4-10.4); Monocytes # 0.9 10^3/uL (0.2-0.9); Monocytes % 8.3 %; Neutrophils # 7.95 10^3/uL (1.8-7.7); Neutrophils % 70.7 %; Nucleated Red Blood Cells % 0 %; Platelet Count 230 10^3/cmm (157-399); Red Cell Distribution Width 13.3 % (12.1-15.1); White Blood Count 11.24 10^3/uL (3.29-11.43)
[2024-06-24 12:37] LABS: Alanine Aminotransferase 73 U/L (0-33); Albumin Level 3.9 g/dL (3.5-5.2); Alkaline Phosphatase 94 U/L (35-105); Anion Gap 14.2 (5-19); Aspartate Amino Transferase 53 U/L (0-32); Blood Urea Nitrogen 10 mg/dL (6-20); Calcium 9.5 mg/dL (8.5-10.5); Carbon Dioxide 25 mmol/L (22-29); Chloride 102 mmol/L (98-107); Creatinine Clr Calc Pharmacy 81.9168; Globulin 3.4 g/dL (1.3-4.6); Glomerular Filtration Rate 67.1 mL/min (90-130); Glucose 109 mg/dL (65-115); Lipase 15 U/L (13-60); Osmolality Calculated 284 mOsm/kg (285-295); Potassium 4.2 mmol/L (3.5-5.1); Sodium 137 mmol/L (136-145); Total Bilirubin 0.8 mg/dL (0.15-1.2); Total Protein 7.3 g/dL (6.6-8.7)
--- NOTE | 2024-06-24 14:37 | ED_ITS ---
HPI - Abdominal Pain 2 General: Chief Complaint: Abdominal Pain Stated Complaint: Right side lower abd pain radiates to back, vomitt Time Seen by Provider: 06/24/24 14:03 History of Present Illness: 49-year-old female presents emergency ro om with right-sided abdominal pain radiating to her back she has had vomiting. Is been going on the last couple of days. Has not noticed particular anything that makes it better or worse she had some dysuria when initially began but she drank more that seems to have resolved she denies any fever sweats or chills she has previously had a cholecystectomy. No chest pain no shortness of breath or cough Associated Symptoms: Denies chills, dysuria and fever(s) Related Data Home Medications Medication Instructions Recorded Confirmed aspirin 81 mg tablet,delayed 81 mg PO DAILY 04/29/23 06/24/24 release Previous Rx's Medication Instructions Recorded albuterol sulfate 90 mcg/actuation 1 inh inhalation QID PRN shortness 06/14/24 aerosol inhaler of breath or wheezing #8.5 grams hydrochlorothiazide 25 mg tablet 25 mg PO DAILY #30 tabs 06/14/24 metoprolol tartrate 25 mg tablet 25 mg PO BID high blood pressure 06/14/24 and migraine headaches #60 tabs sumatriptan succinate 100 mg 100 mg PO .COMPLEX #10 tabs 06/14/24 tablet (Imitrex) Allergies Allergy/AdvReac Type Severity Reaction Status Date / Time latex Allergy ALGY-Rash Verified 06/24/24 11:01 Penicillins Allergy ADR-Abdominal Verified 06/24/24 11:01 Pain Review of Systems 2 Const: Denies: fever(s) or chills Card: Denies: chest pain Resp: Denies: dyspnea GI: Reports: abdominal pain : Denies: dysuria, urinary frequency or urinary urgency Musc: Denies: neck pain or back pain Skin/Breast: Denies: rash PFSH ED 2 PFSH: Medical History Marijuana abuse Chronic low back pain Vaginal delivery Cervical spine fracture Surgical History H/O tubal ligation H/O LEEP S/P small bowel resection Hx of cholecystectomy Social History Smoking and tobacco/nicotine status: never used tobacco/nicotine Alcohol intake: never Substance/Drug Use: current Physical Exam 2 Const: GENERAL APPEARANCE: cooperative ORIENTATION/CONSCIOUSNESS: Yes awake, Yes oriented to person, Yes oriented to place and Yes oriented to time HENMT: COMMON NORMALS: normocephalic, atraumatic and hearing grossly normal bilaterally HEAD & SCALP: normocephalic and atraumatic Resp: COMMON NORMALS: normal respiratory effort, No retractions, No use of accessory muscles and clear to auscultation bilaterally AUSCULTATION: clear to auscultation bilaterally Cardio: COMMON NORMALS: regular rate, regular rhythm and No murmurs present (Cardio) RATE: regular rate RHYTHM: regular rhythm GI: COMMON NORMALS: No hepatosplenomegaly present AUSCULTATION: Yes normoactive bowel sounds PALPATION: Yes Tenderness to palpation present (GI) Details: RLQ, No Guarding due to palpation present (GI) and Yes No hepatosplenomegaly present Extremity: COMMON NORMALS: normal to inspection, capillary refill normal, no clubbing, cyanosis or edema, no calf tenderness and no pedal edema Neuro: SENSORIUM/ORIENTATION: Yes oriented to person, Yes oriented to place and Yes oriented to time Skin: COMMON NORMALS: no rashes or lesions noted GENERAL SKIN EXAM: no rashes or lesions noted Course 2 Vital Signs: Vital signs: Vital Signs Temperature 97.4 F L 06/25/24 04:00 Pulse Rate 66 06/25/24 04:00 Respiratory Rate 17 06/25/24 04:00 Blood Pressure 140/79 06/25/24 04:00 Pulse Oximetry 97 06/25/24 04:00 Oxygen Delivery Me thod Room Air 06/25/24 04:00 MDM - Abdominal Pain Medical Decision Making CT shows signs of perinephric stranding she does have a mild cystitis white count is normal and there is also signs of inflammation around the pancreas. Patient does not drink she does not have history of pancreatitis. Triglycerides were also ordered not significantly elevated. Discussed with Dr. Baca. Will admit n.p.o. monitor lipase antibiotics initiated Lab Data 06/24/24 12:01 06/24/24 12:01 Labs/Radiology: Radiology Impressions Abdomen/Pelvis CT 06/24/24 14:49 IMPRESSION: 1. Peripancreatic haziness and stranding and scattered peripancreatic lymph nodes, suspicious for acute interstitial pancreatitis. 2. Diffuse bladder wall thickening and perivesical stranding, which is suggestive of cystitis in the appropriate clinical setting. 3. Right-sided perirenal stranding may be reactive due to adjacent presumed pancreatitis. Correlate with patient's clinical findings to exclude pyelonephritis. 4. Small right-sided pleural effusion. COMMENTS: Consistent with the [employer]'s Incidental Findings Committee white paper (J Am Yoana Radiol 2018): Any incidental renal lesion less than 1 cm or classified as too small to characterize, or any incidental cystic renal lesion characterized as simple-appearing, is likely benign. No follow-up imaging is recommended for these lesions per consensus recommendations based on imaging criteria. Laboratory Results WBC 11.24 10^3/uL (3.29-11.43) 06/24/24 12:01 RBC 5.00 10^6/uL (3.85-5.65) 06/24/24 12:01 Hgb 13.40 g/dL (11.27-16.99) 06/24/24 12:01 Hct 41.9 % (36-47) 06/24/24 12:01 MCV 83.8 fl (85-98) L 06/24/24 12:01 MCH 26.8 pg (27-33) L 06/24/24 12:01 MCHC 32.0 g/dL (30-55) 06/24/24 12:01 RDW 13.3 % (12.1-15.1) 06/24/24 12:01 Plt Count 230 10^3/cmm (157-399) 06/24/24 12:01 MPV 9.2 fL (7.4-10.4) 06/24/24 12:01 Neut % (Auto) 70.7 % 06/24/24 12:01 Lymph % (Auto) 16.3 % 06/24/24 12:01 Cassia % (Auto) 8.3 % 06/24/24 12:01 Eos % (Auto) 3.6 % 06/24/24 12:01 Baso % (Auto) 0.7 % 06/24/24 12:01 Neut # (Auto) 7.95 10^3/uL (1.8-7.7) H 06/24/24 12:01 Lymph # (Auto) 1.8 10^3/uL (0.8-4.8) 06/24/24 12:01 Cassia # (Auto) 0.9 10^3/uL (0.2-0.9) 06/24/24 12:01 Eos # (Auto) 0.4 10^3/uL (0.0-0.8) 06/24/24 12:01 Baso # (Auto) 0.1 10^3/uL (0.0-0.1) 06/24/24 12:01 Nucleated RBC % (auto) 0 % 06/24/24 12:01 Nucleated RBCs # 0.0 /100WBC 06/24/24 12:01 Sodium 137 mmol/L (136-145) 06/24/24 12:01 Potassium 4.2 mmol/L (3.5-5.1) 06/24/24 12:01 Chloride 102 mmol/L (98-107) 06/24/24 12:01 Carbon Dioxide 25 mmol/L (22-29) 06/24/24 12:01 Anion Gap 14.2 (5-19) 06/24/24 12:01 BUN 10 mg/dL (6-20) 06/24/24 12:01 Creatinine 0.9 mg/dL (0.5-0.9) 06/24/24 12:01 GFR Calculation 67.1 mL/min (90-130) L 06/24/24 12:01 Glucose 109 mg/dL (65-115) 06/24/24 12:01 Estimat Average Glucose 114 06/24/24 12:01 Hemoglobin A1c 5.6 % (4.0-6.0) 06/24/24 12:01 Calculated Osmolality 284 mOsm/kg (285-295) L 06/24/24 12:01 Calcium 9.5 mg/dL (8.5-10.5) 06/24/24 12:01 Total Bilirubin 0.8 mg/dL (0.15-1.2) 06/24/24 12:01 AST 53 U/L (0-32) H 06/24/24 12:01 ALT 73 U/L (0-33) H 06/24/24 12:01 Alkaline Phosphatase 94 U/L (35-105) 06/24/24 12:01 C-Reactive Protein 12.7 mg/L (0.0-4.9) H 06/24/24 12:01 Total Protein 7.3 g/dL (6.6-8.7) 06/24/24 12:01 Albumin 3.9 g/dL (3.5-5.2) 06/24/24 12:01 Globulin 3.4 g/dL (1.3-4.6) 06/24/24 12:01 Triglycerides 64 mg/dL (0-150) 06/24/24 12:01 Triglycerides 66 mg/dL (0-150) 06/24/24 12:01 Cholesterol 174 mg/dL (0-200) 06/24/24 12:01 LDL Cholesterol, Calc 105 mg/dL (50-129) 06/24/24 12:01 HDL Cholesterol 56 mg/dL (60-100) L 06/24/24 12:01 LDL/HDL Ratio 1.88 RATIO (0.00-3.22) 06/24/24 12:01 Cholesterol/HDL Ratio 3.11 mg/dL (0.0-4.40) 06/24/24 12:01 Lipase 15 U/L (13-60) 06/24/24 12:01 Procalcitonin 0.05 ng/mL (0-0.5) 06/24/24 12:01 TSH 0.56 uIU/mL (0.27-4.20) 06/24/24 12:01 Urine Color Yellow (Yellow) 06/24/24 15:15 Urine Appearance Slightly cloudy (CLEAR) 06/24/24 15:15 Urine pH 6.5 (5-7) 06/24/24 15:15 Ur Specific [place] 1.020 (1.005-1.030) 06/24/24 15:15 Urine Protein 2+ (Negative) A 06/24/24 15:15 Urine Glucose (UA) Negative (Normal) 06/24/24 15:15 Urine Ketones Negative (Negative) 06/24/24 15:15 Urine Blood Negative (Negative) 06/24/24 15:15 Urine Nitrate Negative (Negative) 06/24/24 15:15 Urine Bilirubin Negative (Negative) 06/24/24 15:15 Urine Urobilinogen 1.0 mg/dL (Negative) 06/24/24 15:15 Ur Leukocyte Esterase Negative (Negative) 06/24/24 15:15 Urine RBC 3-5 /hpf (0-2) 06/24/24 15:15 Urine WBC 21-50 /hpf (0-5) H 06/24/24 15:15 Ur Squamous Epith Cells 11-20 /hpf (0-5) 06/24/24 15:15 Amorphous Sediment Not Reportable 06/24/24 15:15 Urine Bacteria 1+ /hpf (NONE) H 06/24/24 15:15 Hyaline Casts 2.05 /lpf 06/24/24 15:15 All radiology interpretation(s) finalized by discharge Discharge Plan Discharge Patient Disposition: Placed in Observation Admit Provider: Hugo Youssef Clinical Impression: Pancreatitis, Pyelonephritis Discharge Diet: Cardiac Discharge Activity: Resume usual activity Coding Level of Care Code ED Narrow Gauge Brakeman for Phoebe Wilson
--- NOTE | 2024-06-24 14:49 | CTR_ITS ---
PROCEDURE INFORMATION: Exam: CT Abdomen And Pelvis Without Contrast Exam date and time: 06/24/2024 3:47 PM Age: 49 years old Clinical indication: Abdominal pain; Flank; Right; Prior surgery; Surgery date: 6+ months; Surgery type: Gb TECHNIQUE: Imaging protocol: Computed tomography of the abdomen and pelvis without contrast. Radiation optimization: All CT scans at this facility use at least one of these dose optimization techniques: automated exposure control; mA and/or kV adjustment per patient size (includes targeted exams where dose is matched to clinical indication); or iterative reconstruction. COMPARISON: CR XR chest 2V* [id number] 09/20/2023 12:09 PM RADIATION DOSE METRICS: Total DLP (mGy-cm): 574.69 FINDINGS: Lungs: Bibasilar areas of linear atelectasis. Pleural spaces: Small right-sided pleural effusion. Heart: Cardiomegaly. Liver: The liver is unremarkable. Gallbladder and biliary ducts: There has been a cholecystectomy. No biliary ductal dilatation. Pancreas: There is mild peripancreatic haziness and fat stranding, as well as scattered prominent peripancreatic lymph nodes. Spleen: The spleen is unremarkable. Adrenal glands: The adrenal glands are unremarkable. Kidneys and ureters: There is mild right-sided perirenal stranding. There is a 6 mm hemorrhagic cyst within the right lower pole. The right kidney otherwise appears unremarkable. The left kidney is unremarkable. No hydronephrosis. Stomach and bowel: Colonic diverticulosis without evidence of diverticulitis. Appendix: A normal appendix is identified. Intraperitoneal space: Peripancreatic stranding. There is no evidence of pneumoperitoneum. Retroperitoneal space: There are nonspecific inflammatory changes in the central abdomen and upper retroperitoneum. Vasculature: The vasculature demonstrates minimal atherosclerotic calcification. No aneurysm. Lymph nodes: Scattered prominent peripancreatic and upper retroperitoneal lymph nodes. Urinary bladder: There is diffuse bladder wall thickening. There is associated perivesical stranding. Reproductive: Leiomyomatous uterus. The adnexa are unremarkable. Bones/joints: The spine demonstrates mild degenerative changes at multiple levels. Soft tissues: Soft tissues are unremarkable as visualized. CT/CT abdomen pelvis wo con [id number] IMPRESSION: 1. Peripancreatic haziness and stranding and scattered peripancreatic lymph nodes, suspicious for acute interstitial pancreatitis. 2. Diffuse bladder wall thickening and perivesical stranding, which is suggestive of cystitis in the appropriate clinical setting. 3. Right-sided perirenal stranding may be reactive due to adjacent presumed pancreatitis. Correlate with patient's clinical findings to exclude pyelonephritis. 4. Small right-sided pleural effusion. COMMENTS: Consistent with the [employer]'s Incidental Findings Committee white paper (J Am Yoana Radiol 2018): Any incidental renal lesion less than 1 cm or classified as too small to characterize, or any incidental cystic renal lesion characterized as simple-appearing, is likely benign. No follow-up imaging is recommended for these lesions per consensus recommendations based on imaging criteria.
[2024-06-24] MEDS: ketorolac 60 mg/2 mL INJ IM (15:13)
[2024-06-24 15:28] LABS: Bacteria Urine 1+ /hpf; Hyaline Casts Urine 2.05 /lpf; WBC Urine 21-50 /hpf (0-5)
[2024-06-24 15:32] LABS: Add Urine Microscopic? YES; Bilirubin Urine Negative (Negative); Blood Urine Negative (Negative); Glucose Urine UA Negative (Normal); Ketones Urine Negative (Negative); Leukocyte Esterase Urine Negative (Negative); Nitrate Urine Negative (Negative); Protein Urine 2+ (Negative); Urine Color Yellow (Yellow); pH Urine 6.5 (5-7)
[2024-06-24 15:35] LABS: Add Urine Culture? No; Urine Appearance Slightly Cloudy (CLEAR)
[2024-06-24] MEDS: cefTRIAXone 1,000 MG in water for injection-sterile 2.1 ML 999 MG IM (16:35)
--- NOTE | 2024-06-24 16:42 | PC.NURSE ---
NOTIFIED OF PT BLOOD PRESSURE OF 200/87. PT STATES SHE HAS NOT TAKEN HER BLOOD PRESSURE MEDS TODAY.
[2024-06-24] MEDS: metoprolol tartrate 25 mg Tablet PO (16:58)
--- NOTE | 2024-06-24 17:17 | P.HP_ITS ---
Providers/Chief Complaint 2 Primary Care Provider: Betsy Aguirre MD Chief Complaint: Right side lower abd pain radiates to back, vomitt History of Present Illness Tiffany Burt is a 49 year old female with a past medical hypertension, hyperthyroidism, who presents for complaints of right-sided flank pain, right lower quadrant pain. Patient tells me that for the last few days, she has had right-sided flank pain, right sided back pain radiating to her right lower quadrant, does have poor appetite, no nausea, no vomiting, no diarrhea, no constipation, no blood or black stools, denies any dysuria, no hematuria no history of STDs, denies any alcoholism, no history of type 2 diabetes, Review of Systems 2 Const: Denies: fever(s) or chills Card: Denies: chest pain Resp: Denies: dyspnea GI: Denies: abdominal pain, nausea or vomiting : Reports: flank pain; Denies: difficulty voiding, dysuria or urinary frequency Medications/Allergies Home Medications Medication Instructions Recorded Confirmed Last Taken Type aspirin 81 mg tablet,delayed 81 mg PO DAILY 04/29/23 06/24/24 06/23/24 History release albuterol sulfate 90 mcg/actuation 1 inh inhalation QID PRN shortness 06/14/24 06/24/24 Unknown Rx aerosol inhaler of breath or wheezing #8.5 grams hydrochlorothiazide 25 mg tablet 25 mg PO DAILY #30 tabs 06/14/24 06/24/24 Unknown Rx metoprolol tartrate 25 mg tablet 25 mg PO BID high blood pressure 06/14/24 06/24/24 06/24/24 Rx and migraine headaches #60 tabs sumatriptan succinate 100 mg 100 mg PO .COMPLEX #10 tabs 06/14/24 06/24/24 Unknown Rx tablet (Imitrex) Allergies Allergy/AdvReac Type Severity Reaction Status Date / Time latex Allergy ALGY-Rash Verified 06/24/24 11:01 Penicillins Allergy ADR-Abdominal Verified 06/24/24 11:01 Pain PFSH Acute 2 PFSH: Medical History Marijuana abuse Chronic low back pain Vaginal delivery Cervical spine fracture Surgical History H/O tubal ligation H/O LEEP S/P small bowel resection Hx of cholecystectomy Social History Smoking and tobacco/nicotine status: never used tobacco/nicotine Alcohol intake: never Substance/Drug Use: current Vitals/I&O/Wt Last Vital Signs Temp 97.8 F 06/24/24 10:56 Pulse 57 L 06/24/24 17:07 BP 181/98 06/24/24 17:07 Pulse Ox 100 06/24/24 17:07 O2 Del Method Room Air 06/24/24 17:07 06/24/24 06/24/24 06/24/24 06:59 14:59 22:59 Intake Total 2.1 / 2.1 Balance 2.1 / 2.1 Weight last 48 hrs Weight 78.925 kg Physical Exam 2 Const: COMMON NORMALS: no acute distress and patient oriented x3 Resp: COMMON NORMALS: normal respiratory effort, No retractions, No use of accessory muscles and clear to auscultation bilaterally AUSCULTATION: clear to auscultation bilaterally Cardio: COMMON NORMALS: no JVD, regular rate, regular rhythm, S1 normal heart sound present and S2 normal heart sound present RATE: regular rate RHYTHM: regular rhythm HEART SOUNDS: S1 normal heart sound present and S2 normal heart sound present GI: COMMON NORMALS: Normal to inspection, nondistended, normoactive bowel sounds present, Soft to palpation and non-tender : OTHER: right sided flank ramirez, RLQ pain Extremity: COMMON NORMALS: no pedal edema Neuro: COMMON NORMALS: patient oriented x3 Psych: COMMON NORMALS: mental status grossly normal Data 06/24/24 12:01 06/24/24 12:01 A&P Assessment and plan (1) Pyelonephritis: (2) Pancreatitis: (3) Hypertension: Qualifiers: Hypertension type: primary hypertension Qualified Code(s): I10 - Essential (primary) hypertension (4) Hyperthyroidism: Plan Right-sided flank pain, right lower quadrant pain CT/CT abdomen pelvis wo con [id number] IMPRESSION: 1. Peripancreatic haziness and stranding and scattered peripancreatic lymph nodes, suspicious for acute interstitial pancreatitis. 2. Diffuse bladder wall thickening and perivesical stranding, which is suggestive of cystitis in the appropriate clinical setting. 3. Right-sided perirenal stranding may be reactive due to adjacent presumed pancreatitis. Correlate with patient's clinical findings to exclude pyelonephritis. 4. Small right-sided pleural effusion. Plan ? Evidence of pyelonephritis, has right CVA tenderness, start Rocephin ? No significant tenderness in the epigastrium, pancreatitis? Clear liquids, serial abdominal exams monitor LFTs, ultrasound abdomen ? Blood cultures - CRP, Pro-Kishore ? Tylenol for fevers ? Urine culture ? Clear liquid diet ? Serial abdominal exams ? IV fluids Full code Lovenox for DVT prophylaxis Attestations 2 Medical Necessity Statement*: Patient requires hospitalization, outpatient with observation for right-sided flank pain right lower quadrant pain concerning for acute pyelonephritis Diagnoses Pyelonephritis N12 Pancreatitis K85.90 Primary hypertension I10 Hypertension type: primary hypertension Hyperthyroidism E05.90
[2024-06-24] MEDS: hyDRALAzine 20 mg/mL INJ 1 mL 10 MG IVP (17:42)
[2024-06-24 18:19] LABS: Procalcitonin 0.05 ng/mL (0-0.5)
[2024-06-24 18:31] LABS: C Reactive Protein 12.7 mg/L (0.0-4.9); Triglycerides 66 mg/dL (0-150)
[2024-06-24 18:34] LABS: Lactic Sepsis W/Reflex 1.3 mmol/L (0.5-2.2)
[2024-06-24] MEDS: enoxaparin 40 mg/0.4 mL Syringe SUBCUT (18:41)
[2024-06-24] MEDS: sodium chloride 0.9% 1,000 ML 100 ML IV (18:41)
[2024-06-24] MEDS: pantoprazole 40 mg SDV IVP (18:41)
[2024-06-24 19:01] LABS: Chol HDL Ratio 3.11 mg/dL (0.0-4.40); Cholesterol 174 mg/dL (0-200); HDL Cholesterol 56 mg/dL (60-100); LDL Cholesterol Calculated 105 mg/dL (50-129); LDL HDL Ratio 1.88 RATIO (0.00-3.22); Thyroid Stimulating Hormone 0.56 uIU/mL (0.27-4.20); Triglycerides 64 mg/dL (0-150)
[2024-06-24 20:08] LABS: Estmated Average Glucose 114; Hemoglobin A1C 5.6 % (4.0-6.0)
[2024-06-24] MEDS: acetaminophen 325 mg Tablet 650 MG PO (20:18)
[2024-06-24 21:33] LABS: Hepatitis A Antibody IgM Non-Reactive (Nonreactive); Hepatitis B Core IgM Non-Reactive (Nonreactive); Hepatitis B Surface Antigen Non-Reactive (Nonreactive); Hepatitis C Virus Antibody Reactive (Nonreactive)
[2024-06-24 22:09] LABS: Chlamydia Trachomatis NOT DETECTED; Neisseria Gonorrhea NOT DETECTED
[2024-06-24 22:13] LABS: HIV 1 & 2 Antibody Non-Reactive (Non-Reactiv); HIV 1 & 2 Antigen Non-Reactive (Non-Reactiv)
[2024-06-25] VITALS: BP 156/77; PULSE 71; RESP 19; TEMP 36.8; O2SAT 95
[2024-06-25 04:00] VITALS: BP 140/79; PULSE 66; RESP 17; TEMP 36.3; O2SAT 97
--- NOTE | 2024-06-25 04:39 | PM.DCS ---
Discharge Providers Date of Admission: 06/24/24 17:37 Date of Discharge: June 25, 2024 Attending Provider at Admission: Hugo Youssef MD Attending Provider at Discharge: Hugo Youssef MD Primary Care Provider: Betsy Aguirre MD Diagnoses at Discharge Discharge Diagnosis (1) Pyelonephritis: Status: Acute (2) Pancreatitis: Status: Acute (3) Hypertension: Status: Acute Qualifiers: Hypertension type: primary hypertension Qualified Code(s): I10 - Essential (primary) hypertension (4) Hyperthyroidism: Status: Acute Reason for Visit Reason for Visit: Right side lower abd pain radiates to back, vomitt Discharge Data Studies Completed and Pending Completed Studies During Hospitalization Category Date Time Status CT abdomen pelvis wo con [id number] Stat Cat Scan 06/24/24 14:49 Completed Pending at discharge Category Date Time Status Blood Culture Stat Lab 06/24/24 18:01 Results Complete Blood Count w/Auto AM LABS Lab 06/25/24 04:00 Ordered Complete Blood Count w/Auto AM LABS Lab 06/26/24 04:00 Ordered Complete Blood Count w/Auto AM LABS Lab 06/27/24 04:00 Ordered Comprehensive Metabolic Panel AM LABS Lab 06/25/24 04:00 Ordered Comprehensive Metabolic Panel AM LABS Lab 06/26/24 04:00 Ordered Comprehensive Metabolic Panel AM LABS Lab 06/27/24 04:00 Ordered Hepatitis C RNA Viral Load Qnt Routine Lab 06/24/24 22:05 Received Magnesium AM LABS Lab 06/25/24 04:00 Ordered Magnesium AM LABS Lab 06/26/24 04:00 Ordered Magnesium AM LABS Lab 06/27/24 04:00 Ordered Radiology Impressions Abdomen/Pelvis CT 06/24/24 14:49 IMPRESSION: 1. Peripancreatic haziness and stranding and scattered peripancreatic lymph nodes, suspicious for acute interstitial pancreatitis. 2. Diffuse bladder wall thickening and perivesical stranding, which is suggestive of cystitis in the appropriate clinical setting. 3. Right-sided perirenal stranding may be reactive due to adjacent presumed pancreatitis. Correlate with patient's clinical findings to exclude pyelonephritis. 4. Small right-sided pleural effusion. COMMENTS: Consistent with the [employer]'s Incidental Findings Committee white paper (J Am Yoana Radiol 2018): Any incidental renal lesion less than 1 cm or classified as too small to characterize, or any incidental cystic renal lesion characterized as simple-appearing, is likely benign. No follow-up imaging is recommended for these lesions per consensus recommendations based on imaging criteria. Laboratory Results WBC 11.24 10^3/uL (3.29-11.43) 06/24/24 12:01 RBC 5.00 10^6/uL (3.85-5.65) 06/24/24 12:01 Hgb 13.40 g/dL (11.27-16.99) 06/24/24 12:01 Hct 41.9 % (36-47) 06/24/24 12:01 MCV 83.8 fl (85-98) L 06/24/24 12:01 MCH 26.8 pg (27-33) L 06/24/24 12:01 MCHC 32.0 g/dL (30-55) 06/24/24 12:01 RDW 13.3 % (12.1-15.1) 06/24/24 12:01 Plt Count 230 10^3/cmm (157-399) 06/24/24 12:01 MPV 9.2 fL (7.4-10.4) 06/24/24 12:01 Neut % (Auto) 70.7 % 06/24/24 12:01 Lymph % (Auto) 16.3 % 06/24/24 12:01 [place] % (Auto) 8.3 % 06/24/24 12:01 Eos % (Auto) 3.6 % 06/24/24 12:01 Baso % (Auto) 0.7 % 06/24/24 12:01 Neut # (Auto) 7.95 10^3/uL (1.8-7.7) H 06/24/24 12:01 Lymph # (Auto) 1.8 10^3/uL (0.8-4.8) 06/24/24 12:01 [place] # (Auto) 0.9 10^3/uL (0.2-0.9) 06/24/24 12:01 Eos # (Auto) 0.4 10^3/uL (0.0-0.8) 06/24/24 12:01 Baso # (Auto) 0.1 10^3/uL (0.0-0.1) 06/24/24 12:01 Nucleated RBC % (auto) 0 % 06/24/24 12:01 Nucleated RBCs # 0.0 /100WBC 06/24/24 12:01 Sodium 137 mmol/L (136-145) 06/24/24 12:01 Potassium 4.2 mmol/L (3.5-5.1) 06/24/24 12:01 Chloride 102 mmol/L (98-107) 06/24/24 12:01 Carbon Dioxide 25 mmol/L (22-29) 06/24/24 12:01 Anion Gap 14.2 (5-19) 06/24/24 12:01 BUN 10 mg/dL (6-20) 06/24/24 12:01 Creatinine 0.9 mg/dL (0.5-0.9) 06/24/24 12:01 GFR Calculation 67.1 mL/min (90-130) L 06/24/24 12:01 Glucose 109 mg/dL (65-115) 06/24/24 12:01 Estimat Average Glucose 114 06/24/24 12:01 Hemoglobin A1c 5.6 % (4.0-6.0) 06/24/24 12:01 Calculated Osmolality 284 mOsm/kg (285-295) L 06/24/24 12:01 Lactic Acid 1.3 mmol/L (0.5-2.2) 06/24/24 18:01 Calcium 9.5 mg/dL (8.5-10.5) 06/24/24 12:01 Total Bilirubin 0.8 mg/dL (0.15-1.2) 06/24/24 12:01 AST 53 U/L (0-32) H 06/24/24 12:01 ALT 73 U/L (0-33) H 06/24/24 12:01 Alkaline Phosphatase 94 U/L (35-105) 06/24/24 12:01 C-Reactive Protein 12.7 mg/L (0.0-4.9) H 06/24/24 12:01 Total Protein 7.3 g/dL (6.6-8.7) 06/24/24 12:01 Albumin 3.9 g/dL (3.5-5.2) 06/24/24 12:01 Globulin 3.4 g/dL (1.3-4.6) 06/24/24 12:01 Triglycerides 64 mg/dL (0-150) 06/24/24 12:01 Triglycerides 66 mg/dL (0-150) 06/24/24 12:01 Cholesterol 174 mg/dL (0-200) 06/24/24 12:01 LDL Cholesterol, Calc 105 mg/dL (50-129) 06/24/24 12:01 HDL Cholesterol 56 mg/dL (60-100) L 06/24/24 12:01 LDL/HDL Ratio 1.88 RATIO (0.00-3.22) 06/24/24 12: Cholesterol/HDL Ratio 3.11 mg/dL (0.0-4.40) 06/24/24 12: Lipase 15 U/L (13-60) 06/24/24 12:01 Procalcitonin 0.05 ng/mL (0-0.5) 06/24/24 12:01 TSH 0.56 uIU/mL (0.27-4.20) 06/24/24 12:01 Urine Color Yellow (Yellow) 06/24/24 15:15 Urine Appearance Slightly cloudy (CLEAR) 06/24/24 15:15 Urine pH 6.5 (5-7) 06/24/24 15:15 Ur Specific [place] 1.020 (1.005-1.030) 06/24/24 15:15 Urine Protein 2+ (Negative) A 06/24/24 15:15 Urine Glucose (UA) Negative (Normal) 06/24/24 15:15 Urine Ketones Negative (Negative) 06/24/24 15:15 Urine Blood Negative (Negative) 06/24/24 15:15 Urine Nitrate Negative (Negative) 06/24/24 15:15 Urine Bilirubin Negative (Negative) 06/24/24 15:15 Urine Urobilinogen 1.0 mg/dL (Negative) 06/24/24 15:15 Ur Leukocyte Esterase Negative (Negative) 06/24/24 15:15 Urine RBC 3-5 /hpf (0-2) 06/24/24 15:15 Urine WBC 21-50 /hpf (0-5) H 06/24/24 15:15 Ur Squamous Epith Cells 11-20 /hpf (0-5) 06/24/24 15:15 Amorphous Sediment Not Reportable 06/24/24 15:15 Urine Bacteria 1+ /hpf (NONE) H 06/24/24 15:15 Hyaline Casts 2.05 /lpf 06/24/24 15:15 C. trachomatis (PCR) Not detected 06/24/24 20:14 C.trachomatis RNA (TMA) Cancelled 06/24/24 20:14 Chlamydia/GC Comment Cancelled 06/24/24 20:14 Hepatitis A IgM Ab Non-reactive (Nonreactive) 06/24/24 20:05 Hep Bs Antigen Non-reactive (Nonreactive) 06/24/24 20:05 Hep B Core IgM Ab Non-reactive (Nonreactive) 06/24/24 20:05 Hepatitis C Antibody Reactive (Nonreactive) H 06/24/24 20:05 HIV 1&2 Ab & HIV 1 Ag Non-reactive (Non-Reactiv) 06/24/24 20:05 HIV 1&2 Antibody Non-reactive (Non-Reactiv) 06/24/24 20:05 N. gonorrhoeae (PCR) Not detected 06/24/24 20:14 N.gonorrhoeae RNA (TMA) Cancelled 06/24/24 20:14 Vitals Last Vital Signs Temp 98.3 F 06/25/24 00:00 Pulse 71 06/25/24 00:00 Resp 19 H 06/25/24 00:00 BP 156/77 06/25/24 00:00 Pulse Ox 95 06/25/24 00:00 O2 Del Method Room Air 06/25/24 00:00 Discharge Plan Discharge Patient Disposition: Home Condition: Stable Prescriptions: New levofloxacin 750 mg tablet 750 mg PO DAILY 6 Days Qty: 6 0RF Continued sumatriptan succinate [Imitrex] 100 mg tablet 100 mg PO .COMPLEX Qty: 10 1RF Rx Instructions: Take 1 tablet by mouth as needed for migraine headaches. metoprolol tartrate 25 mg tablet 25 mg PO BID Qty: 60 5RF hydrochlorothiazide 25 mg tablet 25 mg PO DAILY Qty: 30 5RF albuterol sulfate 90 mcg/actuation HFA aerosol inhaler 1 inh inhalation QID PRN (Reason: shortness of breath or wheezing) Qty: 8.5 5RF aspirin 81 mg tablet,delayed release (DR/EC) 81 mg PO DAILY Referrals: Betsy Aguirre MD [Primary Care Provider] - Amy Wagner MD [Hospitalist] - 1 month (hep c) Discharge Diet: Cardiac Discharge Activity: Resume usual activity Patient Instructions: Opioid Safety Activity Restrictions/Additional Instructions: - Please hydrate well ? Please avoid alcohol ? Take antibiotics as prescribed ? If you have any fevers or chills go to emergency room ? For your hepatitis C, please follow-up with infectious disease Coding Level of Care Code Acute Code for [facility] Fwd Diagnoses Pyelonephritis N12 Pancreatitis K85.90 Primary hypertension I10 Hypertension type: primary hypertension Hyperthyroidism E05.90
[2024-06-25] MEDS: sodium chloride 0.9% 1,000 ML 100 ML IV ×2 (06:24→17:21)
--- NOTE | 2024-06-25 06:29 | P.PN_ITS ---
Subjective 2 Subjective: Patient was seen this morning, she continues to have right-sided flank pain, fatigue, malaise, discussed continue IV antibiotics, monitoring her here in the hospital her hepatitis C was positive, she knows that she is positive but she has not been treated as of yet, recommended following up with our infectious disease doctor for treatment, she is agreeable Vitals/I&O/Wt Last Vital Signs Temp 97.4 F L 06/25/24 04:00 Pulse 66 06/25/24 04:00 Resp 17 06/25/24 04:00 BP 140/79 06/25/24 04:00 Pulse Ox 97 06/25/24 04:00 O2 Del Method Room Air 06/25/24 04:00 06/24/24 06/24/24 06/25/24 14:59 22:59 06:59 Intake Total 2.1 / 2.1 946.667 / 948.767 Balance 2.1 / 2.1 946.667 / 948.767 Weight last 48 hrs Weight 83.869 kg Weight 78.925 kg Weight 78.925 kg Physical Exam 2 Const: COMMON NORMALS: no acute distress and patient oriented x3 Resp: COMMON NORMALS: normal respiratory effort, No retractions, No use of accessory muscles and clear to auscultation bilaterally AUSCULTATION: clear to auscultation bilaterally Cardio: COMMON NORMALS: regular rate, regular rhythm, S1 normal heart sound present and S2 normal heart sound present RATE: regular rate RHYTHM: r egular rhythm HEART SOUNDS: S1 normal heart sound present and S2 normal heart sound present GI: COMMON NORMALS: Normal to inspection, nondistended, normoactive bowel sounds present and non-tender : OTHER: Right-sided flank pain Extremity: COMMON NORMALS: no pedal edema Neuro: COMMON NORMALS: patient oriented x3 Psych: COMMON NORMALS: mental status grossly normal Data 06/24/24 12:01 06/24/24 12:01 Micro: Microbiology 06/24/24 18:01 Blood Culture - Preliminary Blood SPECIMEN COLLECTED 06/24/24 17:57 Blood Culture - Preliminary Blood SPECIMEN COLLECTED A&P Assessment and plan (1) Pyelonephritis: (2) Pancreatitis: (3) Hypertension: Qualifiers: Hypertension type: primary hypertension Qualified Code(s): I10 - Essential (primary) hypertension (4) Hyperthyroidism: Plan Right-sided flank pain, right lower quadrant pain CT/CT abdomen pelvis wo con [id number] IMPRESSION: 1. Peripancreatic haziness and stranding and scattered peripancreatic lymph nodes, suspicious for acute interstitial pancreatitis. 2. Diffuse bladder wall thickening and perivesical stranding, which is suggestive of cystitis in the appropriate clinical setting. 3. Right-sided perirenal stranding may be reactive due to adjacent presumed pancreatitis. Correlate with patient's clinical findings to exclude pyelonephritis. 4. Small right-sided pleural effusion. Plan ? Evidence of pyelonephritis, has right CVA tenderness, start Rocephin ? No significant tenderness in the epigastrium, pancreatitis? Clear liquids, serial abdominal exams monitor LFTs, ultrasound abdomen ? Blood cultures ? Tylenol for fevers ? Urine culture ? Clear liquid diet ? Serial abdominal exams ? IV fluids Full code Lovenox for DVT prophylaxis Patient requires hospitalization for pyelonephritis, requiring IV antibiotics Attestations 2 Medical Necessity Statement*: Patient requires hospitalization for pyelonephritis, requiring IV antibiotics Diagnoses Pyelonephritis N12 Pancreatitis K85.90 Primary hypertension I10 Hypertension type: primary hypertension Hyperthyroidism E05.90
[2024-06-25 07:27] VITALS: BP 189/79; PULSE 62; RESP 16; TEMP 36.6; O2SAT 97
[2024-06-25 08:17] LABS: Basophils # 0.1 10^3/uL (0.0-0.1); Basophils % 0.8 %; Eosinophils # 0.4 10^3/uL (0.0-0.8); Eosinophils % 5.1 %; Hematocrit 39.2 % (36-47); Lymphocytes # 2.4 10^3/uL (0.8-4.8); Lymphocytes % 28.6 %; Mean Corpuscular HGB Conc 31.9 g/dL (30-55); Mean Corpuscular Hemoglobin 26.4 pg (27-33); Mean Corpuscular Volume 82.7 fl (85-98); Mean Platelet Volume 9.8 fL (7.4-10.4); Monocytes # 0.7 10^3/uL (0.2-0.9); Neutrophils # 4.63 10^3/uL (1.8-7.7); Neutrophils % 56.3 %; Nucleated Red Blood Cells % 0 %; Platelet Count 229 10^3/cmm (157-399); Red Blood Count 4.74 10^6/uL (3.85-5.65); Red Cell Distribution Width 13.3 % (12.1-15.1); White Blood Count 8.24 10^3/uL (3.29-11.43)
[2024-06-25] MEDS: metoprolol tartrate 25 mg Tablet PO ×2 (08:30→17:21)
[2024-06-25] MEDS: hydroCHLOROthiazide 25 mg Tablet PO (08:30)
[2024-06-25] MEDS: aspirin 81 mg EC Tablet PO (08:31)
[2024-06-25 08:36] LABS: Alanine Aminotransferase 68 U/L (0-33); Albumin Level 3.5 g/dL (3.5-5.2); Alkaline Phosphatase 87 U/L (35-105); Anion Gap 14.1 (5-19); Aspartate Amino Transferase 59 U/L (0-32); Blood Urea Nitrogen 13 mg/dL (6-20); Calcium 8.8 mg/dL (8.5-10.5); Carbon Dioxide 22 mmol/L (22-29); Chloride 102 mmol/L (98-107); Creatinine Clr Calc Pharmacy 84.3293; Globulin 2.8 g/dL (1.3-4.6); Glomerular Filtration Rate 67.1 mL/min (90-130); Glucose 103 mg/dL (65-115); Magnesium 1.8 mg/dL (1.7-2.3); Osmolality Calculated 278 mOsm/kg (285-295); Potassium 4.1 mmol/L (3.5-5.1); Sodium 134 mmol/L (136-145); Total Bilirubin 1.2 mg/dL (0.15-1.2); Total Protein 6.3 g/dL (6.6-8.7)
[2024-06-25] MEDS: acetaminophen 325 mg Tablet 650 MG PO ×2 (11:31→21:20)
[2024-06-25 12:46] VITALS: BP 166/76; PULSE 50; RESP 16; TEMP 36.8; O2SAT 98
--- NOTE | 2024-06-25 13:35 | PC.OT ---
Pt declines OT evaluation; will attempt again at later time.
[2024-06-25] MEDS: ondansetron 2 mg/ML SDV 2 mL 4 MG IVP ×2 (13:49→21:20)
[2024-06-25] MEDS: pantoprazole 40 mg SDV IVP (17:20)
[2024-06-25] MEDS: cefTRIAXone 1,000 mg SDV 1000 MG IVP (17:20)
[2024-06-25 17:33] VITALS: BP 169/88; PULSE 56; RESP 16; TEMP 37.2; O2SAT 99
[2024-06-25 20:06] VITALS: BP 149/83; PULSE 60; RESP 19; TEMP 36.2; O2SAT 96
[2024-06-26] VITALS: BP 147/78; PULSE 59; RESP 17; TEMP 36.3; O2SAT 96
[2024-06-26 04:00] VITALS: BP 152/86; PULSE 58; RESP 15; TEMP 36.6; O2SAT 99
[2024-06-26] MEDS: sodium chloride 0.9% 1,000 ML 100 ML IV (05:54)
[2024-06-26 08:00] VITALS: BP 184/90; PULSE 52; RESP 16; TEMP 36.3; O2SAT 99
[2024-06-26] MEDS: metoprolol tartrate 25 mg Tablet PO (08:23)
[2024-06-26] MEDS: hydroCHLOROthiazide 25 mg Tablet PO (08:23)
[2024-06-26] MEDS: aspirin 81 mg EC Tablet PO (08:23)
--- NOTE | 2024-06-26 12:08 | PM.DCS ---
Discharge Providers Date of Admission: 06/24/24 17:37 Date of Discharge: June 26, 2024 Attending Provider at Admission: Hugo Youssef MD Attending Provider at Discharge: Amy Wagner MD Primary Care Provider: Betsy Aguirre MD Diagnoses at Discharge Discharge Diagnosis (1) Pyelonephritis: Status: Acute (2) Pancreatitis: Status: Acute (3) Hypertension: Status: Acute Qualifiers: Hypertension type: primary hypertension Qualified Code(s): I10 - Essential (primary) hypertension (4) Hyperthyroidism: Status: Acute Reason for Visit Reason for Visit: Right side lower abd pain radiates to back, vomitt Hospital Course Hospital Course 49 year old female with a past medical hypertension, hyperthyroidism, who presents for complaints of right-sided flank pain, right lower quadrant pain. CT of the abdomen and pelvis showed peripancreatic haziness and stranding with scattered peripancreatic lymph nodes which was suspicious for acute pancreatitis. However patient's lipase was not elevated and clinically she had no tenderness on exam therefore less likely to be pancreatitis. Noted was diffuse bladder wall thickening and perivesical stranding suggestive of cystitis. Overall clinical presentation more likely to be right pyelonephritis given CVA tenderness. Patient received treatment with Rocephin 1 g IV every 24 hours and is Clinically improved. Urine and blood cultures are pending today, however patient states that she would like to be discharged. I have recommended patient stay in the hospital until results of culture is available, however she states it is her daughter's baby shower today and she is eager to return home. She is being discharged today with a prescription for levofloxacin 750 mg p.o. daily to be taken every day. Follow-up with primary care physician within 4 to 7 days of discharge to follow-up on pending culture data. She states she will make follow-up appointment with Dr. Aguirre as outpatient. This documentation was created by [employer] grinder machine setter software. Every effort was made to ensure accuracy of grinder machine setter. Any obvious errors or omissions should be clarified with the author of the document. Physical Exam Narrative: General: No acute distress, AO x3 HEENT: PERRLA, pupils bilaterally equal and reactive, pallors not present Chest: Normal vesicular breath sounds, no added sounds, equal good air entry bilaterally CVS: S1-S2 regular, no murmurs, no tachycardia, no gallops, no rubs Abdomen: Soft, nontender, no organomegaly, bowel sounds present Neuro: No focal deficits, no facial deformity, AO x3, power 5/5 in all limbs Discharge Data Studies Completed and Pending Completed Studies During Hospitalization Category Date Time Status CT abdomen pelvis wo con [id number] Stat Cat Scan 06/24/24 14:49 Completed Pending at discharge Category Date Time Status Blood Culture Stat Lab 06/24/24 18:01 Results Complete Blood Count w/Auto AM LABS Lab 06/26/24 04:00 Ordered Complete Blood Count w/Auto AM LABS Lab 06/27/24 04:00 Ordered Comprehensive Metabolic Panel AM LABS Lab 06/26/24 04:00 Ordered Comprehensive Metabolic Panel AM LABS Lab 06/27/24 04:00 Ordered Hepatitis C RNA Viral Load Qnt Routine Lab 06/24/24 22:05 Received Magnesium AM LABS Lab 06/26/24 04:00 Ordered Magnesium AM LABS Lab 06/27/24 04:00 Ordered Urine Culture Stat Lab 06/25/24 06:30 Uncollected Radiology Impressions Abdomen/Pelvis CT 06/24/24 14:49 IMPRESSION: 1. Peripancreatic haziness and stranding and scattered peripancreatic lymph nodes, suspicious for acute interstitial pancreatitis. 2. Diffuse bladder wall thickening and perivesical stranding, which is suggestive of cystitis in the appropriate clinical setting. 3. Right-sided perirenal stranding may be reactive due to adjacent presumed pancreatitis. Correlate with patient's clinical findings to exclude pyelonephritis. 4. Small right-sided pleural effusion. COMMENTS: Consistent with the [employer]'s Incidental Findings Committee white paper (J Am Yoana Radiol 2018): Any incidental renal lesion less than 1 cm or classified as too small to characterize, or any incidental cystic renal lesion characterized as simple-appearing, is likely benign. No follow-up imaging is recommended for these lesions per consensus recommendations based on imaging criteria. Laboratory Results WBC 8.24 10^3/uL (3.29-11.43) 06/25/24 07:47 RBC 4.74 10^6/uL (3.85-5.65) 06/25/24 07:47 Hgb 12.50 g/dL (11.27-16.99) 06/25/24 07:47 Hct 39.2 % (36-47) 06/25/24 07:47 MCV 82.7 fl (85-98) L 06/25/24 07:47 MCH 26.4 pg (27-33) L 06/25/24 07:47 MCHC 31.9 g/dL (30-55) 06/25/24 07:47 RDW 13.3 % (12.1-15.1) 06/25/24 07:47 Plt Count 229 10^3/cmm (157-399) 06/25/24 07:47 MPV 9.8 fL (7.4-10.4) 06/25/24 07:47 Neut % (Auto) 56.3 % 06/25/24 07:47 Lymph % (Auto) 28.6 % 06/25/24 07:47 [place] % (Auto) 9.0 % 06/25/24 07:47 Eos % (Auto) 5.1 % 06/25/24 07:47 Baso % (Auto) 0.8 % 06/25/24 07:47 Neut # (Auto) 4.63 10^3/uL (1.8-7.7) 06/25/24 07:47 Lymph # (Auto) 2.4 10^3/uL (0.8-4.8) 06/25/24 07:47 [place] # (Auto) 0.7 10^3/uL (0.2-0.9) 06/25/24 07:47 Eos # (Auto) 0.4 10^3/uL (0.0-0.8) 06/25/24 07:47 Baso # (Auto) 0.1 10^3/uL (0.0-0.1) 06/25/24 07:47 Nucleated RBC % (auto) 0 % 06/25/24 07:47 Nucleated RBCs # 0.0 /100WBC 06/25/24 07:47 Sodium 134 mmol/L (136-145) L 06/25/24 07:47 Potassium 4.1 mmol/L (3.5-5.1) 06/25/24 07:47 Chloride 102 mmol/L (98-107) 06/25/24 07:47 Carbon Dioxide 22 mmol/L (22-29) 06/25/24 07:47 Anion Gap 14.1 (5-19) 06/25/24 07:47 BUN 13 mg/dL (6-20) 06/25/24 07:47 Creatinine 0.9 mg/dL (0.5-0.9) 06/25/24 07:47 GFR Calculation 67.1 mL/min (90-130) L 06/25/24 07:47 Glucose 103 mg/dL (65-115) 06/25/24 07:47 Estimat Average Glucose 114 06/24/24 12:01 Hemoglobin A1c 5.6 % (4.0-6.0) 06/24/24 12:01 Calculated Osmolality 278 mOsm/kg (285-295) L 06/25/24 07:47 Lactic Acid 1.3 mmol/L (0.5-2.2) 06/24/24 18:01 Calcium 8.8 mg/dL (8.5-10.5) 06/25/24 07:47 Magnesium 1.8 mg/dL (1.7-2.3) 06/25/24 07:47 Total Bilirubin 1.2 mg/dL (0.15-1.2) 06/25/24 07:47 AST 59 U/L (0-32) H 06/25/24 07:47 ALT 68 U/L (0-33) H 06/25/24 07:47 Alkaline Phosphatase 87 U/L (35-105) 06/25/24 07:47 C-Reactive Protein 12.7 mg/L (0.0-4.9) H 06/24/24 12:01 Total Protein 6.3 g/dL (6.6-8.7) L 06/25/24 07:47 Albumin 3.5 g/dL (3.5-5.2) 06/25/24 07:47 Globulin 2.8 g/dL (1.3-4.6) 06/25/24 07:47 Triglycerides 64 mg/dL (0-150) 06/24/24 12:01 Triglycerides 66 mg/dL (0-150) 06/24/24 12:01 Cholesterol 174 mg/dL (0-200) 06/24/24 12:01 LDL Cholesterol, Calc 105 mg/dL (50-129) 06/24/24 12:01 HDL Cholesterol 56 mg/dL (60-100) L 06/24/24 12:01 LDL/HDL Ratio 1.88 RATIO (0.00-3.22) 06/24/24 12:01 Cholesterol/HDL Ratio 3.11 mg/dL (0.0-4.40) 06/24/24 12:01 Lipase 15 U/L (13-60) 06/24/24 12:01 Procalcitonin 0.05 ng/mL (0-0.5) 06/24/24 12:01 TSH 0.56 uIU/mL (0.27-4.20) 06/24/24 12:01 Urine Color Yellow (Yellow) 06/24/24 15:15 Urine Appearance Slightly cloudy (CLEAR) 06/24/24 15:15 Urine pH 6.5 (5-7) 06/24/24 15:15 Ur Specific [place] 1.020 (1.005-1.030) 06/24/24 15:15 Urine Protein 2+ (Negative) A 06/24/24 15:15 Urine Glucose (UA) Negative (Normal) 06/24/24 15:15 Urine Ketones Negative (Negative) 06/24/24 15:15 Urine Blood Negative (Negative) 06/24/24 15:15 Urine Nitrate Negative (Negative) 06/24/24 15:15 Urine Bilirubin Negative (Negative) 06/24/24 15:15 Urine Urobilinogen 1.0 mg/dL (Negative) 06/24/24 15:15 Ur Leukocyte Esterase Negative (Negative) 06/24/24 15:15 Urine RBC 3-5 /hpf (0-2) 06/24/24 15:15 Urine WBC 21-50 /hpf (0-5) H 06/24/24 15:15 Ur Squamous Epith Cells 11-20 /hpf (0-5) 06/24/24 15:15 Amorphous Sediment Not Reportable 06/24/24 15:15 Urine Bacteria 1+ /hpf (NONE) H 06/24/24 15:15 Hyaline Casts 2.05 /lpf 06/24/24 15:15 C. trachomatis (PCR) Not detected 06/24/24 20:14 C.trachomatis RNA (TMA) Cancelled 06/24/24 20:14 Chlamydia/GC Comment Cancelled 06/24/24 20:14 Hepatitis A IgM Ab Non-reactive (Nonreactive) 06/24/24 20:05 Hep Bs Antigen Non-reactive (Nonreactive) 06/24/24 20:05 Hep B Core IgM Ab Non-reactive (Nonreactive) 06/24/24 20:05 Hepatitis C Antibody Reactive (Nonreactive) H 06/24/24 20:05 HIV 1&2 Ab & HIV 1 Ag Non-reactive (Non-Reactiv) 06/24/24 20:05 HIV 1&2 Antibody Non-reactive (Non-Reactiv) 06/24/24 20:05 N. gonorrhoeae (PCR) Not detected 06/24/24 20:14 N.gonorrhoeae RNA (TMA) Cancelled 06/24/24 20:14 Vitals Last Vital Signs Temp 97.4 F L 06/26/24 08:00 Pulse 52 L 06/26/24 08:00 Resp 16 06/26/24 08:00 BP 184/90 06/26/24 08:00 Pulse Ox 99 06/26/24 08:00 O2 Del Method Room Air 06/26/24 08:00 Discharge Plan Discharge Patient Disposition: Home Condition: Stable Prescriptions: New levofloxacin 750 mg tablet 750 mg PO DAILY 6 Days Qty: 6 0RF Continued sumatriptan succinate [Imitrex] 100 mg tablet 100 mg PO .COMPLEX Qty: 10 1RF Rx Instructions: Take 1 tablet by mouth as needed for migraine headaches. metoprolol tartrate 25 mg tablet 25 mg PO BID Qty: 60 5RF hydrochlorothiazide 25 mg tablet 25 mg PO DAILY Qty: 30 5RF albuterol sulfate 90 mcg/actuation HFA aerosol inhaler 1 inh inhalation QID PRN (Reason: shortness of breath or wheezing) Qty: 8.5 5RF aspirin 81 mg tablet,delayed release (DR/EC) 81 mg PO DAILY Discharge Orders: Discharge Order (Routine); Ordered 06/26/24 Ordered By: Amy Wagner Referrals: Betsy Aguirre MD [Primary Care Provider] - 4-7 days (We have notified your physician's clinic of the need for a follow-up appointment to be scheduled. If you have not heard from them within the next 2 business days, please call them directly. ) Discharge Diet: Cardiac Discharge Activity: Resume usual activity Patient Instructions: Levofloxacin (By mouth) (Levaquin, Levaquin Leva-wing), Pancreatitis (GEN), Opioid Safety Activity Restrictions/Additional Instructions: - Please hydrate well ? Please avoid alcohol ? Take antibiotics as prescribed ? If you have any fevers or chills go to emergency room ? For your hepatitis C, please follow-up with infectious disease Discharge Attestations Time Spent in Discharge Care*: greater than 30 min Quality Metrics Clinical Quality Measures [ No reported AMI, CVA or VTE this stay] Coding Level of Care Code Acute Code for [facility] Fwd Diagnoses Pyelonephritis N12 Pancreatitis K85.90 Primary hypertension I10 Hypertension type: primary hypertension Hyperthyroidism E05.90
[2024-06-26 14:34] LABS: HEP C RNA Viral Load Quant 1340000 IU/mL (NOT DETECTED); HEP C RNA Viral Load Quant 6.13 Log IU/mL (NOT DETECTED)
== END 2024-06-26 12:35 | disposition home or self-care (01) ==
LOC: ER 16:51 → MEDSURG 17:37
PROVIDERS: Emergency Medicine; Admitting Provider Family Medicine; Emergency Provider Family Medicine; PCP Family Medicine; Visit Provider Student in an Organized Health Care Education/Training Program
DX: N12 Tubulo-interstitial nephritis, not specified as acute or chronic (principal); K85.90 Acute pancreatitis without necrosis or infection, unspecified; I10 Essential (primary) hypertension; E05.90 Thyrotoxicosis, unspecified without thyrotoxic crisis or storm; B19.20 Unspecified viral hepatitis C without hepatic coma; Z79.82 Long term (current) use of aspirin
CPT/HCPCS: 36415; 74176; 80053; 80061; 80074; 81001; 83036; 83605; 83690; 83735; 84145; 84443; 84478; 85025; 86140; 87040; 87491; 87522; 87591; 87806; 94664; 96372; 96374; 96375; 96376; 97165; 99285; G0378; J0360; J0696; J1650; J1885; J2405; J2470; J7030

== ENCOUNTER → 2024-08-31 09:32 | Outpatient (BNVA) | payer MEDICARE, MEDICAID, SELFPAY | PROVIDERS: PCP Family Medicine; Visit Provider Student in an Organized Health Care Education/Training Program | DX: B19.20 Unspecified viral hepatitis C without hepatic coma (principal) | CPT/HCPCS: 36415; 81596; 87902; 99205 ==